=== PATIENT | female | born 1955 | race Caucasian/White ===

== ENCOUNTER 2018-01-23 12:51 | Day surgery (SDC) | payer OTHER ==
[~2018-01-23] VITALS: Ht 157.5 cm; Wt 99.0 kg
[2018-01-23 13:10] VITALS: BP 109/65; PULSE 94; TEMP 98.8
[2018-01-23] MEDS ORDERED: CELEBREX 1100 MG/CAP PO (13:14)
[2018-01-23] MEDS ORDERED: ASPIRIN 81M81 MG/TA2 PO (13:14)
[2018-01-23] MEDS ORDERED: GLUCOTROL10 MG PO (13:15)
[2018-01-23] MEDS ORDERED: PROZAC 20MG20 MG PO (13:15)
[2018-01-23] MEDS ORDERED: JANUMXR100-1000 PO (13:15)
[2018-01-23] MEDS ORDERED: LIPITOR20 MG PO (13:16)
[2018-01-23] MEDS ORDERED: SYNTHROID0.112 MG/T PO (13:16)
[2018-01-23] MEDS ORDERED: COZAAR100 MG PO (13:16)
[2018-01-23] MEDS ORDERED: VITAMIN D 400400 IU PO (13:16)
[2018-01-23 15:05] VITALS: BP 119/68; PULSE 85; TEMP 98.2
[2018-01-23 15:20] VITALS: BP 104/81; PULSE 84
== END 2018-01-23 15:46 | disposition home or self-care (01) ==
LOC: SDCO 12:51
DX: I85.01 Esophageal varices with bleeding (principal); K76.6 Portal hypertension; D64.9 Anemia, unspecified; E11.9 Type 2 diabetes mellitus without complications; K31.89 Other diseases of stomach and duodenum; E07.9 Disorder of thyroid, unspecified; Z79.84 Long term (current) use of oral hypoglycemic drugs; Z85.43 Personal history of malignant neoplasm of ovary; Z86.010 Personal history of colon polyps; I10 Essential (primary) hypertension; Z79.82 Long term (current) use of aspirin; Z79.899 Other long term (current) drug therapy
CPT/HCPCS: J2704; J7030

== ENCOUNTER 2018-02-13 08:31 | Day surgery (SDC) | payer OTHER ==
[~2018-02-13] VITALS: Ht 160 cm; Wt 98.3 kg
[~2018-02-13 08:31] MED LIST: ASPIRIN 81M81 MG/TA2 PO; CELEBREX 1100 MG/CAP PO; COZAAR100 MG PO; GLUCOTROL10 MG PO; JANUMXR100-1000 PO; LIPITOR20 MG PO; PROZAC 20MG20 MG PO; SYNTHROID0.112 MG/T PO; VITAMIN D 400400 IU PO
[2018-02-13 09:06] VITALS: BP 105/68; PULSE 79; TEMP 97.8
[2018-02-13] MEDS ORDERED: NATURAL IRON65 MG PO (09:17)
[2018-02-13 10:10] VITALS: BP 138/79; PULSE 81; TEMP 97.7
[2018-02-13 10:15] VITALS: BP 132/82; PULSE 78
[2018-02-13 10:30] VITALS: BP 123/82; PULSE 74
== END 2018-02-13 10:53 | disposition home or self-care (01) ==
LOC: SDCO 08:31
DX: K63.5 Polyp of colon (principal); K64.0 First degree hemorrhoids; D64.9 Anemia, unspecified; I10 Essential (primary) hypertension; E11.9 Type 2 diabetes mellitus without complications; K74.60 Unspecified cirrhosis of liver; F32.9 Major depressive disorder, single episode, unspecified; K92.1 Melena; E03.9 Hypothyroidism, unspecified; E66.9 Obesity, unspecified; Z68.37 Body mass index [BMI] 37.0-37.9, adult; Z90.49 Acquired absence of other specified parts of digestive tract; Z90.710 Acquired absence of both cervix and uterus; Z79.82 Long term (current) use of aspirin; Z79.84 Long term (current) use of oral hypoglycemic drugs; Z86.010 Personal history of colon polyps; Z85.43 Personal history of malignant neoplasm of ovary
CPT/HCPCS: OP; J2704; J3010; J7030

== ENCOUNTER 2019-03-05 08:11 | Day surgery (SDC) | payer OTHER ==
[~2019-03-05] VITALS: Ht 160 cm; Wt 84.1 kg
[~2019-03-05 08:11] MED LIST changes: +NATURAL IRON65 MG PO
[2019-03-05 09:11] VITALS: BP 114/73; PULSE 75
[2019-03-05] MEDS ORDERED: JARDIANCE25 PO (09:26)
[2019-03-05 10:25] VITALS: BP 111/66; PULSE 75; TEMP 97.3
[2019-03-05 10:40] VITALS: BP 112/72; PULSE 74
[2019-03-05 10:55] VITALS: BP 120/72; PULSE 72
--- NOTE | 2019-03-05 11:31 | NUR ---
PT AWAKE AND ORIENTATED AFTER PROCEDURE IN ENDO. INTO BAY 5 AT 1010. PT HAD MODERATE SEDATION. PT DENIES N/V, HEADACHE, DIZZINESS. PT DENIES PAIN. OFFERED FOOD AND DRINK. PT REQUESTED BLUEBERRY MUFFIN AND ICE WATER AND PT TOLERATED IT WELL. , CARLI AT BEDSIDE. TALKING WITH ONE ANOTHER. PT IV WAS THEN DC'D PER RIGHT HAND. PT TOLERATED WELL. NO REDNESS, SWELLING OR TENDERNESS NOTED. DISCHARGE INSTRUCTIONS WAS GIVEN TO PT AND SPOUSE. BOTH VOICED UNDERSTANDING. NOTIFIED PT AND SPOUSE THAT H-PYLORI TEST WAS NEGATIVE. PT DC'D TO HOME, WAS WALKED OUT TO PATIENT ENTRANCE WITH . DENIED PAIN, N/V OR ANY OTHER PROBLEMS. PT GOT INTO FAMILY CAR. FABY
== END 2019-03-05 11:00 | disposition home or self-care (01) ==
LOC: SDCO 08:11
DX: K74.60 Unspecified cirrhosis of liver (principal); I85.10 Secondary esophageal varices without bleeding; K76.6 Portal hypertension; K31.89 Other diseases of stomach and duodenum; K76.0 Fatty (change of) liver, not elsewhere classified; K76.9 Liver disease, unspecified; Z85.43 Personal history of malignant neoplasm of ovary; Z90.710 Acquired absence of both cervix and uterus; Z86.010 Personal history of colon polyps; E11.9 Type 2 diabetes mellitus without complications; D73.1 Hypersplenism; Z90.49 Acquired absence of other specified parts of digestive tract; D69.6 Thrombocytopenia, unspecified; Z79.82 Long term (current) use of aspirin; Z96.651 Presence of right artificial knee joint; I10 Essential (primary) hypertension; E03.9 Hypothyroidism, unspecified
CPT/HCPCS: J2704; J7030

== ENCOUNTER → 2019-03-11 | Outpatient (CLI) | payer OTHER ==
[~2019-03-11] MED LIST changes: +JARDIANCE25 PO
== END ==
LOC: COL.RAD 07:38
DX: R68.81 Early satiety (principal)
CPT/HCPCS: A9541

== ENCOUNTER → 2019-09-10 | Outpatient (CLI) | payer OTHER | LOC: COL.RAD 08:53 | DX: R26.89 Other abnormalities of gait and mobility (principal); R90.82 White matter disease, unspecified ==

== ENCOUNTER 2019-10-18 03:49 | Inpatient (IN) | payer OTHER ==
[~2019-10-18] VITALS: Ht 160 cm; Wt 88.8 kg
[2019-10-18] MEDS ORDERED: VITAMIN D31000 I1 PO (05:30)
[2019-10-18] MEDS ORDERED: LACTULOSE10 GM/153 PO (05:31)
[2019-10-18 06:02] VITALS: BP 116/70; PULSE 100; TEMP 97.3
[2019-10-18 06:52] LABS: BASO % 0.3 % (0.0-2.0); EOS % 0.3 % (0-4.0); GRAN # 2.6 (1.4-6.5); GRAN % 68.2 % (42.2-75.2); HEMATOCRIT 44.4 % (37.0-47.0); HEMOGLOBIN 14.6 g/dl (12.5-16.0); LYMPH # 0.7 (1.2-3.4); LYMPH % 18.1 % (20.0-51.0); MEAN CELL VOLUME 99 fl (80.0-100.0); MEAN CORPUSCULAR HEMOGLOBIN 33 pg (27.0-31.0); MEAN CORPUSCULAR HGB CONC 33 g/dl (33.0-37.0); MEAN PLATELET VOLUME 8.8 fl (7.4-10.4); MONO # 0.5 (0.1-0.6); MONO % 12.6 % (1.7-9.3); PLATELET COUNT 76 K/mm3 (130-400); RED BLOOD COUNT 4.49 M/mm3 (4.10-5.30); REDCELL DISTRIBUTION WIDTH-CV 18.7 % (11.5-14.5)
[2019-10-18 07:02] LABS: ALBUMIN 2.9 gm/dL (3.5-5.0); BILIRUBIN,TOTAL 2.6 mg/dL (0.0-1.0); CALCIUM 9.2 mg/dL (8.4-10.2); CREATININE, serum 0.35 (0.52-1.25); POTASSIUM 3.5 mmol/L (3.4-5.0); TOTAL PROTEIN 7.4 gm/dL (6.4-8.2)
[2019-10-18 07:11] VITALS: BP 127/75; PULSE 93; TEMP 97.8
--- NOTE | 2019-10-18 07:41 | NUR ---
PT admitted to medical unit from [facility] where she presented with SOA, jaundice, and ascites. PT is A&Ox4, is able to make her wants/needs known. PT had an 18G IV placed by Emmanuel in her Right AC that flushes well and has no complications noted. PT spouse drove their car to the hospital and then returned home to obtain PT's medications for medication reconcialtion. PT denies pain and is currently NPO. No s/s of distress noted. Report given at bedside to Enriqueta DE PAZ.
[2019-10-18] MEDS ORDERED: COZAAR 25MG25 MG/TAB PO (08:06)
[2019-10-18] MEDS ORDERED: PROZAC40 MG PO (08:08)
[2019-10-18] MEDS ORDERED: XIFAXAN550 MG PO (08:10)
[2019-10-18] MEDS ORDERED: JANUMET 1000 MG1 TA1 PO (08:12)
[2019-10-18 08:30] LABS: INR 1.3 (0.8-3.0); PROTHROMBIN TIME 15.7 SECONDS (9.7-12.8)
--- NOTE | 2019-10-18 09:15 | NUR ---
Pt to radiology for procedure via WC.
[2019-10-18 10:30] LABS: PERITONEAL -POLYMORPHONUCLEAR 3.4 % (0-25); PERITONEAL FLUID RBC 0 /mm3 (0-0)
--- NOTE | 2019-10-18 10:45 | NUR ---
Pt back in room, reports feeling better following procedure, respirations even and unlabored. No needs reported. Call light in reach.
[2019-10-18 11:16] VITALS: BP 111/62; PULSE 74; TEMP 97.5
[2019-10-18 11:18] LABS: TSH w REFLEX 0.357 uIU/mL (0.465-4.680)
[2019-10-18 13:21] LABS: MUCOUS Present /lpf; PH 6 (5-8); URINE APPEARANCE Clear; URINE BACTERIA None Seen /hpf; URINE BILIRUBIN Negative (NEGATIVE); URINE BLOOD 1+ (NEGATIVE); URINE COLOR Yellow; URINE GLUCOSE 3+ (NEGATIVE); URINE KETONE 1+ (NEGATIVE); URINE LEUKOCYTE ESTERASE Negative (NEGATIVE); URINE NITRATE Negative (NEGATIVE); URINE PROTEIN(semi-quant) Negative (NEGATIVE); URINE UROBILINOGEN >=4.0 mg/dL (NEGATIVE)
[2019-10-18 13:44] LABS: BUDDING YEAST Present /hpf
--- NOTE | 2019-10-18 14:07 | NUR ---
Primary nurse was assisted with [phone] patient care by [employer] student Liliam Rodriguez and [employer] instructor Violette Valentine RN-BC.
--- NOTE | 2019-10-18 14:24 | NUR ---
Economic Development Manager met with patient to discuss discharge planning. Patient lives in [place] with her Se (ph#[phone]). Patient receives primary care and medications from [facility]. Patient denies use of any DME and reports independence with ADLS. Patient states she and her are looking into establishing DPO[facility] but don't have it completed at this time. Patient plans to return home upon discharge with her providing transportation. SW to continue to follow as needed.
[2019-10-18 16:29] VITALS: BP 113/68; PULSE 76; TEMP 97.9
[2019-10-18 17:30] LABS: COLLECTION METHOD CLEAN CATCH
--- NOTE | 2019-10-18 18:00 | NUR ---
Pt sitting up on side of bed eating dinner, reports continued relief with breathing since earlier procedure, denies pain or needs at this time. Call light in reach.
[2019-10-18 19:50] VITALS: BP 120/57; PULSE 90; TEMP 97.8
--- NOTE | 2019-10-18 19:50 | NUR ---
Patient assessed at this time. Alert and oriented x 4, and able to make needs known. Denies having pain and discomfort at this time. Does reports some SOB/dyspnea. SPO2 91% RA. Put on oxygen at 1 L/min via NC for comfort at requested. Respirations even and unlabored. HRR. Telemetry: normal sinus. Capillary refill less than 3 seconds. Non-tenting skin turgor. Abdomen soft, distended. BSAx4. Bandaid to paracentesis site on right side of abdomen CDI. No edema. Voices no questions, needs, or concerns at this time. Resting in bed with call light within reach.
--- NOTE | 2019-10-18 21:40 | NUR ---
Patient's BS was 246. Refusing sliding scale insulin at this time.
[2019-10-18 23:05] VITALS: BP 110/57; PULSE 81; TEMP 98
[2019-10-19 03:17] VITALS: BP 107/53; PULSE 77; TEMP 97.7
--- NOTE | 2019-10-19 05:02 | NUR ---
Patient has had an uneventful night. Has denied having pain and discomfort throughout the night. Voices no questions, needs, or concerns. Continues to wear oxygen at 1-2 L/min via NC for SOB. Resting in bed with call light within reach.
--- NOTE | 2019-10-19 05:57 | NUR ---
Patient requested oxygen to be taken off. Denies having SOB and dyspnea at this time. Patient currently on room air. Denies having any questions, needs, or concerns at this time.
[2019-10-19 06:24] LABS: BASO % 0.6 % (0.0-2.0); EOS # 0.1 (0.0-0.7); EOS % 2.8 % (0-4.0); GRAN % 61.1 % (42.2-75.2); HEMATOCRIT 41.3 % (37.0-47.0); HEMOGLOBIN 13.2 g/dl (12.5-16.0); LYMPH # 0.7 (1.2-3.4); LYMPH % 21.2 % (20.0-51.0); MEAN CELL VOLUME 98 fl (80.0-100.0); MEAN CORPUSCULAR HEMOGLOBIN 31 pg (27.0-31.0); MEAN CORPUSCULAR HGB CONC 32 g/dl (33.0-37.0); MEAN PLATELET VOLUME 8.6 fl (7.4-10.4); MONO # 0.5 (0.1-0.6); PLATELET COUNT 63 K/mm3 (130-400); RED BLOOD COUNT 4.21 M/mm3 (4.10-5.30); REDCELL DISTRIBUTION WIDTH-CV 18.6 % (11.5-14.5)
[2019-10-19 06:25] LABS: INR 1.4 (0.8-3.0); PROTHROMBIN TIME 16.3 SECONDS (9.7-12.8)
[2019-10-19 06:32] LABS: ALBUMIN 2.2 gm/dL (3.5-5.0); BILIRUBIN,TOTAL 1.7 mg/dL (0.0-1.0); CALCIUM 8.5 mg/dL (8.4-10.2); CREATININE, serum 0.27 (0.52-1.25); POTASSIUM 3.3 mmol/L (3.4-5.0); TOTAL PROTEIN 6.2 gm/dL (6.4-8.2)
--- NOTE | 2019-10-19 07:00 | NUR ---
Bedside shift report received from ZANDRA Galdamez. PT in bed resting with eyes closed, will continue to monitor.
[2019-10-19 07:55] VITALS: BP 121/59; PULSE 87; TEMP 97.7
--- NOTE | 2019-10-19 08:09 | NUR ---
Vancomycin Initial Dosing Pharmacy Note Ordering provider: MD Billie Indication/duration: BACTEREMIA Relevant comorbidities: diabetes LABS: WBC 3.2, SCr 0.3, CrCl >100 Recommendation: vancomycin 17 mg/kg Loading dose: 1.75 grams Maintenance dose: 1.5 grams every 12 hours Trough goal: 15-20 ug/mL. Trough 10/21 @ 0800
--- NOTE | 2019-10-19 09:00 | NUR ---
Assessment charted. Pt in bed resting, up ad debbi for morning needs, assisted to bathroom. Abd drainage at paracentesis site, changed bandaid and linens. Pt taking PO well. Rested well through the night and anticiapting discharge today. Appetite resolved, no issues with urine or bowel. Will continue to monitor.
[2019-10-19 10:00] VITALS: BP 96/51; PULSE 85; TEMP 98.3
--- NOTE | 2019-10-19 12:14 | NUR ---
Workgroup Leader stopped by and offered prayer and support with patient.
[2019-10-19 17:25] VITALS: BP 111/56; PULSE 85; TEMP 98
--- NOTE | 2019-10-19 19:02 | NUR ---
Pt doing well this afternoon, took a shower, taking PO well. Discussed waiting on cultures to grow, bedside shift report given to ZANDRA Lala who will resume care.
[2019-10-19 19:24] VITALS: BP 106/51; PULSE 86; TEMP 98.2
[2019-10-19 23:26] VITALS: BP 99/53; PULSE 83; TEMP 97.8
--- NOTE | 2019-10-19 23:33 | NUR ---
ASSESSMENT COMPLETE. RESTING IN BED, WATCHING TELEVISION. DENIES PAIN/DISCOMFORT. DENIES NEEEDS AT THIS TIME.
[2019-10-20 03:02] VITALS: BP 106/47; PULSE 84; TEMP 97.9
[2019-10-20 06:36] LABS: BASO % 0.3 % (0.0-2.0); EOS # 0.1 (0.0-0.7); EOS % 3.4 % (0-4.0); GRAN # 1.8 (1.4-6.5); GRAN % 58.9 % (42.2-75.2); HEMOGLOBIN 13.8 g/dl (12.5-16.0); LYMPH # 0.6 (1.2-3.4); LYMPH % 21.2 % (20.0-51.0); MEAN CELL VOLUME 100 fl (80.0-100.0); MEAN CORPUSCULAR HEMOGLOBIN 33 pg (27.0-31.0); MEAN CORPUSCULAR HGB CONC 33 g/dl (33.0-37.0); MEAN PLATELET VOLUME 9.2 fl (7.4-10.4); MONO # 0.5 (0.1-0.6); MONO % 15.5 % (1.7-9.3); PLATELET COUNT 63 K/mm3 (130-400); RED BLOOD COUNT 4.22 M/mm3 (4.10-5.30); REDCELL DISTRIBUTION WIDTH-CV 18.6 % (11.5-14.5)
[2019-10-20 06:49] LABS: ALBUMIN 2.4 gm/dL (3.5-5.0); BILIRUBIN,TOTAL 2.2 mg/dL (0.0-1.0); CALCIUM 8.1 mg/dL (8.4-10.2); CREATININE, serum 0.32 (0.52-1.25); POTASSIUM 3.6 mmol/L (3.4-5.0); TOTAL PROTEIN 6.2 gm/dL (6.4-8.2)
[2019-10-20 08:13] VITALS: BP 110/62; PULSE 86; TEMP 97.7
--- NOTE | 2019-10-20 08:58 | NUR ---
Shift report received from night stocker RN, Dai. At time of assessment, patient is sitting up in bed and has already finished her breakfast. Patient does not complain of any pain. Paracentesis operation site is WAITER/WAITRESS TAVERN and is free of drainage or swelling. Edema is still noted in abdominal area. Patients inquires about discharge. No further concerns at this moment.
--- NOTE | 2019-10-20 11:24 | NUR ---
PATIENT DOES NOT QUALIFY FOR OXYGEN AT HOME SHE STAYED ABOVE 90% DURING 5 MIN EXERCISE ON ROOM AIR.
[2019-10-20 13:04] VITALS: BP 123/72; PULSE 87; TEMP 98.2
[2019-10-20] MEDS ORDERED: LEVOXYL0.1 MG PO (14:32)
[2019-10-20] MEDS ORDERED: K-TAB20 PO (14:33)
[2019-10-20] MEDS ORDERED: LASIX 40MG TABL40 MG PO (14:33)
[2019-10-20] MEDS ORDERED: ALDACTONE 100M100 MG PO (14:33)
--- NOTE | 2019-10-20 15:30 | NUR ---
Discharge packet reviewed; IV and tele monitor removed; This RN discussed change to Synthroid dosage change and new medication prescription of Lasix and Spironolactone. Patient walked out of hospital with and this RN.
== END 2019-10-20 15:30 | disposition home or self-care (01) | DRG 432 ==
LOC: MEDICAL 03:49
PROVIDERS: Family Medicine; Nurse Practitioner Family; ADMIT Hospitalist
PROC: 0W9G3ZZ Drainage of Peritoneal Cavity, Percutaneous Approach (ICD-10-PCS; principal; 2019-10-18)
DX: K74.60 Unspecified cirrhosis of liver (principal); J96.01 Acute respiratory failure with hypoxia; R18.8 Other ascites; K76.6 Portal hypertension; Z68.43 Body mass index [BMI] 50.0-59.9, adult; E78.5 Hyperlipidemia, unspecified; E03.9 Hypothyroidism, unspecified; D69.6 Thrombocytopenia, unspecified; E66.9 Obesity, unspecified; I10 Essential (primary) hypertension; K31.89 Other diseases of stomach and duodenum; F41.0 Panic disorder [episodic paroxysmal anxiety]; Z96.651 Presence of right artificial knee joint; Z90.49 Acquired absence of other specified parts of digestive tract; Z90.710 Acquired absence of both cervix and uterus
CPT/HCPCS: 99222-AI; 99232-AI; 99239; A4216; J0696; J1815; J3370; J7040; J7050